=== PATIENT | female | born 1955 | race African-American/Black ===

== ENCOUNTER 2017-10-10 21:51 | Emergency (ER) | payer MEDICAID ==
[~2017-10-10] VITALS: Ht 170.2 cm; Wt 73.0 kg
[~2017-10-10 21:51] MED LIST: METF500T3 PO; QUET300T5 PO
[2017-10-11 02:30] VITALS: BP 137/88
== END 2017-10-11 03:10 | disposition home or self-care (01) ==
LOC: ER 21:51
DX: J06.9 Acute upper respiratory infection, unspecified (principal); F17.200 Nicotine dependence, unspecified, uncomplicated
CPT/HCPCS: 99283

== ENCOUNTER 2018-03-03 16:57 | Emergency (ER) | payer MEDICAID ==
[~2018-03-03] VITALS: Ht 170.2 cm; Wt 75.0 kg
[2018-03-03 17:13] VITALS: BP 159/54
== END 2018-03-03 20:56 | disposition home or self-care (01) ==
LOC: ER 16:57
DX: S82.002A Unspecified fracture of left patella, initial encounter for closed fracture (principal); Z79.899 Other long term (current) drug therapy; W01.0XXA Fall on same level from slipping, tripping and stumbling without subsequent striking against object, initial encounter; Y93.89 Activity, other specified; Y92.89 Other specified places as the place of occurrence of the external cause; Y99.8 Other external cause status
CPT/HCPCS: 73560; 99283; L1830

== ENCOUNTER 2018-06-13 16:57 | Emergency (ER) | payer MEDICAID ==
[~2018-06-13] VITALS: Ht 167.6 cm; Wt 74.0 kg
[2018-06-13 17:19] VITALS: BP 132/67
== END 2018-06-13 18:58 | disposition home or self-care (01) ==
LOC: ER 16:57
DX: J06.9 Acute upper respiratory infection, unspecified (principal); R20.2 Paresthesia of skin; F17.200 Nicotine dependence, unspecified, uncomplicated
CPT/HCPCS: 82962; 99283

== ENCOUNTER 2018-09-24 12:30 | Emergency (ER) | payer MEDICAID ==
[~2018-09-24] VITALS: Ht 167.6 cm; Wt 73.0 kg
[2018-09-24 12:49] VITALS: BP 100/62
== END 2018-09-24 14:37 | disposition home or self-care (01) ==
LOC: ER 12:30
DX: S90.511A Abrasion, right ankle, initial encounter (principal); L30.4 Erythema intertrigo; F17.200 Nicotine dependence, unspecified, uncomplicated; R20.2 Paresthesia of skin; X58.XXXA Exposure to other specified factors, initial encounter; Y93.89 Activity, other specified; Y92.89 Other specified places as the place of occurrence of the external cause; Y99.8 Other external cause status
CPT/HCPCS: 99282; 99283

== ENCOUNTER 2019-01-20 10:34 | Emergency (ER) | payer MEDICAID ==
[~2019-01-20] VITALS: Ht 167.6 cm; Wt 73.0 kg
[2019-01-20 12:14] VITALS: BP 118/74
== END 2019-01-20 12:15 | disposition home or self-care (01) ==
LOC: ER 10:34
DX: J06.9 Acute upper respiratory infection, unspecified (principal)
CPT/HCPCS: 99283